=== PATIENT | male | born 1990 | race Hispanic/Latino ===

== ENCOUNTER → 2016-08-26 | Outpatient (CLI) | payer BC ==
--- NOTE | 2016-08-26 17:07 | REP ---
RIGHT KNEE, FIVE VIEWS: HISTORY: Pain. There is no acute fracture or dislocation. The joint spaces are normal in appearance. There is no acute fracture or dislocation. Signed by Connor Paul MD 08/26/2016 05:08 P
== END ==
LOC: M RAD 15:12
PROVIDERS: ATTEND Physician Assistant Medical
DX: M25.561 Pain in right knee (principal)